=== PATIENT | female | born 1985 | race Native Hawaiian/Other Pacific Islander ===

== ENCOUNTER 2016-12-30 10:42 | Emergency (ER) | payer OTHER ==
[~2016-12-30] VITALS: Ht 165.1 cm; Wt 87.2 kg
[2016-12-30 10:53] VITALS: BP 135/89; PULSE 69; RESP 16; TEMP 97.5; O2SAT 99
[2016-12-30] MEDS ORDERED: PROV10TA PO (11:18)
--- NOTE | 2016-12-30 11:18 | PD ---
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 Patient states that approximately 1.5 years ago she had near whole-body liposuction and postprocedure did not have a menstrual period for approximately one year. For the last now approximately 6 months she has had fairly irregular vaginal bleeding. She is bleeding more days and she has not. Over the last week it has increased with now clot formation prompting ER visit. She does state that she had one previous abnormal Pap smear with possible. It was otherwise unremarkable. She took a test in October that was negative but has not taken any since. No pelvic pain. No lightheadedness, dizziness. She uses approximately 2-3 pads per day. PFSH Past Medical History Diminished Hearing: No Thyroid Disease: Yes (Hypothyroidism) Tetanus Vaccination: Unknown Influenza Vaccination: No ?: Not LMP: LAST REGULAR 1 YEAR AGO-DENIES POSSIBILITY OF Past Surgical History Other Surgery: Yes (liposuction 2014) Social History Alcohol Use: No Tobacco Use: No Substance Use: No Allergies-Medications (Allergen,Severity, Reaction): Coded Allergies: No Known Allergies (Unverified , 12/30/16) Reported Meds & Prescriptions Reported Meds & Active Scripts Active Provera (Medroxyprogesterone Acetate) 10 Mg Tab 10 Mg PO DAILY Start day 16 Review of Systems Except as stated in HPI: all other systems reviewed are Neg Physical Exam Narrative GENERAL: Well-appearing female in no acute distress SKIN: Focused skin assessment warm/dry. Vitiligo on the extremities HEAD:Normocephalic. EYES: No scleral icterus. No injection or drainage. ENT: Mucous membranes pink and moist. NECK: Supple CARDIOVASCULAR: Regular rate and rhythm. No murmur appreciated. RESPIRATORY: No accessory muscle use. Clear to auscultation. Breath sounds equal bilaterally. GASTROINTESTINAL: Abdomen soft, non-tender, nondistended. GENITOURINARY: Normal external female genitalia. Speculum examination reveals minimal blood within the vaginal vault with minimal clot. Cervix is unremarkable. Uterus is minimally full, question fibroid, but no firmness, adhesion or pain. MUSCULOSKELETAL: Normal gait NEUROLOGICAL: Awake and alert. Normal speech. PSYCHIATRIC: Appropriate mood and affect; insight and judgment normal. Data Data Last Documented VS Vital Signs Date Time Temp Pulse Resp B/P Pulse Ox O2 Delivery O2 Flow Rate FiO2 12/30/16 10:53 97.5 69 16 135/89 99 Orders Ed Urine Pregnancytest Poc (12/30/16 10:58) MDM Medical Decision Making Medical Screen Exam Complete: Yes Emergency Medical Condition: Yes Medical Record Reviewed: Yes Differential Diagnosis 31-year-old female here with complaint of 6 months of heavy vaginal bleeding, increased of clot over the last week. Differential includes dysmenorrhea, menorrhagia, dysfunctional uterine bleeding, leiomyoma Narrative Course Urine test was negative. We'll try a short course of Provera and referred to outpatient [facility] for further workup and pelvic ultrasound. Diagnosis Primary Impression: Dysfunctional uterine bleeding Referrals: [facility] call for appointment [facility] call for appointment Additional Instructions: Provera as prescribed. Follow-up with [facility] ADMINISTRATOR for further outpatient workup and likely pelvic ultrasound as discussed. Med/Other Pt SpecificInfo: Prescription(s) given Scripts Medroxyprogesterone Acetate (Provera)10 Mg Tab10 Mg PO DAILY #10 TAB Ref 0 Start day 16 Prov:Salma Sotomayor MD 12/30/16 Disposition: 01 DISCHARGE HOME Condition: Stable Salma Sotomayor MD Dec 30, 2016 11:18
== END 2016-12-30 11:39 | disposition home or self-care (01) ==
LOC: PHED 10:42
DX: N93.8 Other specified abnormal uterine and vaginal bleeding (principal); E03.9 Hypothyroidism, unspecified
CPT/HCPCS: 84703; 99284

== ENCOUNTER 2017-03-11 21:51 | Emergency (ER) | payer OTHER ==
[~2017-03-11] VITALS: Ht 165.1 cm; Wt 84.0 kg
[~2017-03-11 21:51] MED LIST: PROV10TA PO
[2017-03-11 22:07] VITALS: BP 142/87; PULSE 98; RESP 18; TEMP 99; O2SAT 98
[2017-03-11] MEDS ORDERED: AUGM875T3 PO (22:35)
--- NOTE | 2017-03-11 22:42 | PD ---
HPI Chief Complaint: ENT Complaint Time Seen by Provider: 22:31 Travel History International Travel<30 days: No Contact w/Intl Traveler<30days: No Traveled to known affect area: No History of Present Illness HPI 31-year-old female presents emergency department for evaluation of sore throat 3 days. Patient denies fever or chills, cough, nasal congestion. She reports pain with swallowing although doesn't have difficulty eating or drinking. She reports that the right side slightly more painful than the left. Symptom severity mild. No aggravating or alleviating factors. Pain scale 4/10. PFSH Past Medical History Medical History: Denies Significant Hx Diminished Hearing: No Immunizations Current: No Thyroid Disease: Yes (Hypothyroidism) Tetanus Vaccination: > 5 Years Influenza Vaccination: No ?: Not LMP: 02-10-17 Past Surgical History Other Surgery: Yes (liposuction 2014) Social History Alcohol Use: No Tobacco Use: No Substance Use: No Allergies-Medications (Allergen,Severity, Reaction): Coded Allergies: No Known Allergies (Unverified , 03/11/17) Reported Meds & Prescriptions Reported Meds & Active Scripts Active No Active Prescriptions or Reported Medications Review of Systems Except as stated in HPI: all other systems reviewed are Neg Physical Exam Narrative GENERAL: Well-nourished, well-developed patient. SKIN: Focused skin assessment warm/dry. HEAD: Normocephalic. EYES: No scleral icterus. No injection or drainage. THROAT: Bilateral tonsillar swelling with erythema right greater than left. Uvula is midline. NECK: Supple, trachea midline. No JVD or lymphadenopathy. CARDIOVASCULAR: Regular rate and rhythm without murmurs, gallops, or rubs. RESPIRATORY: Breath sounds equal bilaterally. No accessory muscle use. GASTROINTESTINAL: Abdomen soft, non-tender, nondistended. Data Data Last Documented VS Vital Signs Date Time Temp Pulse Resp B/P Pulse Ox O2 Delivery O2 Flow Rate FiO2 03/11/17 22:10 03/11/17 22:07 99.0 98 18 98 MDM Medical Decision Making Medical Screen Exam Complete: Yes Emergency Medical Condition: Yes Differential Diagnosis Tonsillitis, strep pharyngitis, tonsillar abscess Narrative Course 31-year-old female with chief complaint of sore throat 3 days. Patient is nontoxic and well-appearing. On exam she has bilateral tonsillar swelling with erythema the right tonsil greater than left. Patient will be treated for tonsillitis. Instructed to take [id number] NSAIDs as needed for pain. Stay well hydrated. Take antibiotics as prescribed. Return precautions discussed. She verbalizes understanding and agrees to plan. Diagnosis Primary Impression: Tonsillitis Referrals: Primary Care Physician Additional Instructions: Take antibiotics as prescribed. Take [id number] Motrin [id number] milligrams every 6-8 hours as needed for pain. Stay well hydrated by drinking plenty of fluids. Return to emergency department if he developed new or worsening symptoms. Scripts Amoxicillin-Clavulanate (Augmentin)875-125 Mg Tab1 Tab PO BID #20 TAB Prov:Marlyn Pate 03/11/17 Disposition: 01 DISCHARGE HOME Condition: Stable Marlyn Pate Mar 11, 2017 22:42
== END 2017-03-11 22:52 | disposition home or self-care (01) ==
LOC: PHEFT 21:51
DX: J03.90 Acute tonsillitis, unspecified (principal)
CPT/HCPCS: 99283

== ENCOUNTER 2017-04-27 17:39 | Emergency (ER) | payer OTHER ==
[~2017-04-27] VITALS: Ht 165.1 cm; Wt 84.5 kg
[~2017-04-27 17:39] MED LIST changes: +AUGM875T3 PO; -PROV10TA PO
[2017-04-27 17:42] VITALS: BP 149/71; PULSE 106; RESP 16; TEMP 98.6; O2SAT 96
[2017-04-27] MEDS ORDERED: LEVO.075 PO (17:54)
[2017-04-27] MEDS ORDERED: BIRTH CONTROL (17:54)
--- NOTE | 2017-04-27 18:54 | PD ---
HPI Chief Complaint: Skin Problem Time Seen by Provider: 18:50 Travel History International Travel<30 days: No Contact w/Intl Traveler<30days: No Traveled to known affect area: No History of Present Illness HPI This patient came because she had some STD testing done recently. 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 She does not have any active lesions or genital complaints at this time. He is just stressed out about those results. She does not of any history of diagnosed herpes. Symptoms severity is mild PFSH Past Medical History Diminished Hearing: No Immunizations Current: No Thyroid Disease: Yes (Hypothyroidism) Tetanus Vaccination: > 5 Years Influenza Vaccination: No ?: Not LMP: 04/16/2017 Past Surgical History Other Surgery: Yes (liposuction 2014) Social History Alcohol Use: No Tobacco Use: No Substance Use: No Allergies-Medications (Allergen,Severity, Reaction): Coded Allergies: No Known Allergies (Unverified , 04/27/17) Reported Meds & Prescriptions Reported Meds & Active Scripts Active Reported [ Control] Synthroid (Levothyroxine Sodium) 75 Mcg Tab 75 Mcg PO DAILY Review of Systems General / Constitutional: No: Fever HENT: No: Headaches Cardiovascular: No: Chest Pain or Discomfort Physical Exam Narrative Psych: Normal mood and affect. Normal insight and judgment. SKIN: Focused skin assessment reveals minimal nonspecific irritation in the right hand webspace of digits 2 and 3 . Skin is warm and dry. Palpation shows no induration or nodules. Data Data Last Documented VS Vital Signs Date Time Temp Pulse Resp B/P (MAP) Pulse Ox O2 Delivery O2 Flow Rate FiO2 04/27/17 17:42 98.6 106 16 149/71 (97) 96 MDM Medical Decision Making Medical Screen Exam Complete: Yes Emergency Medical Condition: Yes Medical Record Reviewed: Yes Differential Diagnosis HSV exposure, laboratory error Narrative Course I have reviewed the patient's electronic medical record. Patient should discuss this in detail with the ordering physician Dr. Mills who is her primary care physician. I told her what I could about the situation but her physician should go over this with her No indication for emergent treatment Diagnosis Primary Impression: Person consulting for explanation of examination or test finding Additional Instructions: The patient was advised to follow up with their physician and return if they worsen. Med/Other Pt SpecificInfo: Other Disposition: 01 DISCHARGE HOME Condition: Stable Camden Phillips MD Apr 27, 2017 18:54
== END 2017-04-27 19:11 | disposition home or self-care (01) ==
LOC: PHED 17:39
DX: Z71.2 Person consulting for explanation of examination or test findings (principal)
CPT/HCPCS: 99282